=== PATIENT | female | born 1985 | race Caucasian/White ===

== ENCOUNTER 2016-12-30 11:09 | Emergency (ER) | payer BC ==
[~2016-12-30] VITALS: Ht 167.6 cm; Wt 59.0 kg
--- NOTE | 2016-12-30 11:33 | [facility] Report ---
History of Present Issue Date/Time Seen by Provider 12/30/16 1128 Visit Reason Pt arrived:Walked Presenting Problem:SORE THROAT, COUGH, CONGESTION Location if Accident: Onset of symptoms date/time:/ or onset unknown for:MEDICAL HX UNKNOWN Have you (or family members/close friends) recently traveled outside the [place]? N If Yes, where/when: Have you had exposure to infectious disease within the past month? TB? Other? Specify: Source patient, RN notes reviewed Exam Limitations no limitations Comment 31-year-old female presents for sore throat and nasal congestion. 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 Patient states she liked down yesterday to take a nap and when she awoke she had a sore throat. ALLERGIES Coded Allergies: No Known Allergies (12/30/16) Home Medications Reported Medications No Known Home Medications History Medical History General CAD? No Angina: No DC: No Hypertension? No Hyperlipidemia? No CHF? No DVT? No PE? No COPD? No Asthma? No Anemia? No GERD? No Gastric ulcers? No GI Bleed? No Hernia? No Thyroid Problems? No Hypothyroidism? No CVA? No Seizures? No Diabetes? No UTI? No Stones? No BPH? No GB Disease: No Nephritic Syndrome? No Asplenia? No Hepatitis? No Sickle Cell Disease? No Arthritis? No Migraines? No Cataracts? No Glaucoma? No MRSA? No HIV? No TB? No Anxiety? No Depression? No Cancer? No More? No Immunization HX DT/Tetanus 1-4 Years Ago Surgical Hx Previous Surgery?N Social History Smoking Hx Smoker: Never Smoker Tobacco: No Review of Systems All Other Systems Reviewed and Negative ENT see HPI, throat pain. Physical Exam Vital Signs Vital Signs Date Time Temp Pulse Resp B/P Pulse O2 O2 Flow FiO2 Ox Delivery Rate 12/30 1117 98.7 75 14 124/69 98 - WBC >12,000 or <4,000 or 10% bands? 2 or more SIRS Criteria Met? B/P:124/69 MAP:87 Creatinine >2.0? UA output<0.5ml/kg/hr for 2 hrs? Platelet count >100,000? Lactate >2.0mmol/1? INR >1.2 or PTT > than 60 sec? Evidence of Organ Dysfunction? Provider documented clinical suspician of infection? Sepsis Criteria Count: 0 Sepsis Risk: General Appearance normal appearance, no apparent distress Eye Exam - bilateral eye normal exam, bilateral eye PERRL, bilateral eye EOMI Ear, Nose, Throat hearing grossly normal, tonsillar exudate, tonsillar swelling Respiratory Status Yes: trachea midline, chest symmetrical, non tender chest. No: respiratory distress. Lung Sounds bilateral: normal breath sounds, lungs clear. Cardiovascular normal exam, regular rate/rhythm Neurologic alert, normal exam, oriented x 3 Medical Decision Making LABS/Meds/Orders Pt receiving controlled substance in ED? No Results/Orders Laboratory Tests 12/30/16 1115: Group A Strep Screen Pending Orders Procedure Date/time Status [facility] STREP SCREEN 12/30 1115 Active Departure Departure Time of Disposition 1130 Disposition DC Home or Self Care(routine) Clinical Impression Primary Impression: Strep throat Condition STABLE Patient Instructions DI for Strep Throat, Strep Throat Additional Instructions Contact precautions reviewed with patient Tylenol Motrin as needed for pain or fever Antibiotics discussed with patient Return or be seen in the ER symptoms worsen or do not improve Discharge Counseling Counseled pt/family regarding diagnosis, test results, medications/RX, home care, follow up needs Prescriptions Current Visit Scripts Azithromycin (Zithromax) 250 MG PO DAILY #6 TAB USE DIRECTED. at 1138
[2016-12-30 11:36] VITALS: BP 124/69
== END 2016-12-30 11:38 | disposition home or self-care (01) ==
LOC: UTC 11:09
DX: J02.0 Streptococcal pharyngitis (principal)